=== PATIENT | male | born 1985 | race Caucasian/White ===

== ENCOUNTER 2016-04-21 | Emergency (ER) | payer OTHER | END 2016-04-22 01:26 | disposition home or self-care (01) | DX: S52.201A Unspecified fracture of shaft of right ulna, initial encounter for closed fracture (principal); W19.XXXA Unspecified fall, initial encounter | CPT/HCPCS: 29125; 73090; 99283 ==

== ENCOUNTER 2020-05-12 02:01 | Emergency (ER) | payer OTHER ==
[~2020-05-12 02:01] MED LIST: BENADRYL 25MG C25 MG PO; CLEOCIN HCL150 MG PO; CLEOCIN HCL300 MG PO; CLINDAMYCIN HC150 MG PO; ERYTHROMYCIN O3.5 GM OS; LOTRIMIN CREAM15 GM TOP; VERMOX PO; VISTARIL25 MG PO
[2020-05-12 02:30] LABS: RED BLOOD COUNT 4.51 M/UL (4.20-5.50); WHITE BLOOD COUNT 7.3 K/UL (4.5-11.0)
[2020-05-12 02:46] LABS: BUN/CREATININE RATIO 19 (0-10)
== END 2020-05-12 11:18 | disposition home or self-care (01) ==
LOC: ER1 02:01
PROVIDERS: Emergency Medicine
DX: T40.1X1A Poisoning by heroin, accidental (unintentional), initial encounter (principal)
CPT/HCPCS: 71045; 80053; 83605; 83735; 83880; 84100; 85025; 87040; 96374; 99284; J2310; J7030

== ENCOUNTER 2020-08-15 15:18 | Emergency (ER) | payer OTHER ==
[2020-08-15] MEDS ORDERED: ZOLOFT100 MG PO (16:51)
[2020-08-15] MEDS ORDERED: BUSPAR 10MG10 MG PO (16:51)
== END 2020-08-15 17:04 | disposition home or self-care (01) ==
LOC: ER1 15:18
DX: F32.9 Major depressive disorder, single episode, unspecified (principal); F41.9 Anxiety disorder, unspecified; Z76.0 Encounter for issue of repeat prescription
CPT/HCPCS: 99281

== ENCOUNTER 2020-12-08 16:33 | Emergency (ER) | payer OTHER ==
[~2020-12-08 16:33] MED LIST changes: +BUSPAR 10MG10 MG PO; +CEPHALEXIN500 M1 PO; +CORTISONE28 G2 TP; +ZOLOFT100 MG PO
== END 2020-12-08 17:32 | disposition left against medical advice (07) ==
LOC: ER1 16:33
DX: L03.115 Cellulitis of right lower limb (principal); L03.116 Cellulitis of left lower limb; F17.200 Nicotine dependence, unspecified, uncomplicated; Z86.19 Personal history of other infectious and parasitic diseases; Z88.8 Allergy status to other drugs, medicaments and biological substances
CPT/HCPCS: 99283